=== PATIENT | female | born 1980 | race African-American/Black ===

== ENCOUNTER 2019-06-26 12:02 | Emergency (ER) | payer BC, OTHER ==
[2019-06-26 12:08] VITALS: BP 104/64
--- NOTE | 2019-06-26 12:36 | ER Document Report ---
HPI - HPI Time Seen by Provider: 06/26/19 12:23 Pain Level: 3 Context: Patient is a 39-year-old female presents to the emergency department with a chief complaint of sinus drainage and headache. Patient states the symptoms have been present for 24 hours. Patient states she has been taking Tylenol for her headache without relief. Patient reports that she has a continuous drainage from her nose that is clear. Patient denies a history of allergies. Patient reports nausea without vomiting or diarrhea. Patient denies visual changes. Patient reports sinus pressure. - REPRODUCTIVE Reproductive: DENIES: : Past Medical History - General Information source: Patient - Social History Smoking Status: Unknown if Ever Smoked Lives with: Family Family History: None - Past Medical History Cardiac Medical History: Reports: None Pulmonary Medical History: Reports: None EENT Medical History: Reports: None Neurological Medical History: Reports: None Endocrine Medical History: Reports: None Renal/ Medical History: Reports: None Malignancy Medical History: Reports: None GI Medical History: Reports: None Musculoskeletal Medical History: Reports None Skin Medical History: Reports None Psychiatric Medical History: Reports: None Traumatic Medical History: Reports: None Infectious Medical History: Reports: None Vertical Provider Document - CONSTITUTIONAL Agree With Documented VS: Yes Exam Limitations: No Limitations General Appearance: No Apparent Distress - INFECTION CONTROL TRAVEL OUTSIDE OF THE [place] IN LAST 30 DAYS: No - HEENT HEENT: Atraumatic, Normocephalic, PERRLA Notes: Turbinates are erythematous and edematous bilaterally. Patient does have clear rhinorrhea. Physical examination of the pharynx reveals a slightly erythematous throat. There is no tonsillar hypertrophy or exudate. Patient does have mild maxillary sinus tenderness bilaterally. - NECK Neck: Normal Inspection - RESPIRATORY Respiratory: Breath Sounds Normal, No Respiratory Distress - CARDIOVASCULAR Cardiovascular: Regular Rate, Regular Rhythm - GI/ABDOMEN Gastrointestinal: Abdomen Soft, Abdomen Non-Tender, Normal Bowel Sounds - NEURO Level of Consciousness: Awake, Alert, Appropriate - DERM Integumentary: Warm, Dry, No Rash Course - Re-evaluation Re-evalutation: 06/26/19 12:35 Patient no acute distress and is nontoxic-appearing. I did inform the patient that since her symptoms has started within the past 24 hours antibiotics are not appropriate at this time. I did inform the patient to use Flonase as well as a Zyrtec which is an antihistamine. Patient to use conservative measures and return to the emergency department if symptoms worsen. Patient verbalizes understanding. - Vital Signs Vital signs: Temp Pulse Resp BP Pulse Ox 98.4 F 77 18 104/64 98 06/26/19 12:07 06/26/19 12:07 06/26/19 12:07 06/26/19 12:07 06/26/19 12:07 Discharge - Discharge Clinical Impression: Sinus drainage, Rhinorrhea Headache Qualifiers: Headache type: unspecified Headache chronicity pattern: acute headache Intractability: not intractable Qualified Code(s): R51 - Headache Condition: Stable Disposition: HOME, SELF-CARE Additional Instructions: Today you are seen in the emergency department for runny nose and sinus pain. At this time I do not believe you require oral antibiotics or imaging. Please continue to take Tylenol or ibuprofen as needed for pain. Please use [id number] Flonase and Zyrtec as we have discussed. Please continue to drink plenty of fluids. If you smoke or around secondhand smoke please refrain from this as this can be an irritant. Please return to the emergency department if you develop a fever, severe headache, vomiting or any other concerning signs or symptoms. Upper Respiratory Illness You have a viral infection of the respiratory passages -- a "cold." This common infection causes nasal congestion, drainage, and often sore throat and cough. It is caused by a virus and is highly contagious. The disease usually lasts a week or more, though the worst symptoms are usually over in 3 or 4 days. There is no "cure" for the viral infection -- it must run its course. If there is a complication, such as bacterial infection in the nose, sinuses, middle ear, or bronchial tubes, antibiotics may be required, but antibiotics won't affect the virus. If you smoke, you should STOP!! Drink plenty of fluids. A humidifier may help. An expectorant medication or decongestant may make you more comfortable. Use acetaminophen or ibuprofen for fever or aches. See the doctor if fever persists over two or three days, if there is any significant worsening of your symptoms, or if you simply fail to improve as expected. Forms: Return to Work Referrals: [facility]AL[facility],NO [Primary Care Provider] - Follow up as needed
== END 2019-06-26 12:38 | disposition home or self-care (01) ==
LOC: ER 12:02
DX: J34.89 Other specified disorders of nose and nasal sinuses (principal); R51 Headache; R09.89 Other specified symptoms and signs involving the circulatory and respiratory systems; R11.0 Nausea
CPT/HCPCS: 99283